=== PATIENT | female | born 1990 | race Caucasian/White ===

== ENCOUNTER 2016-08-24 13:39 | Emergency (ER) | payer SELFPAY ==
[2016-08-24 14:55] VITALS: BP 142/65
--- NOTE | 2016-08-24 15:47 | UC ---
Lower Extremity/Ankle HPI - HPI Summary HPI Summary: works as a [employer] has a couple days of worsening left foot and ankle pain---no known trauma - History of Current Complaint Chief Complaint: UCLowerExtremity Stated Complaint: LEFT FOOT PAIN Time Seen by Provider: 08/24/16 15:47 Hx Obtained From: Patient Hx Last Menstrual Period: 08/06/13 ?: No Onset/Duration: Gradual Onset, Lasting Days - 2, Still Present, Worse Since - today Severity Initially: Mild Severity Currently: Moderate Aggravating Factor(s): Standing, Ambulation Alleviating Factor(s): Rest, Elevation Able to Bear Weight: Yes - with pain - Allergies/Home Medications Allergies/Adverse Reactions: Allergies Allergy/AdvReac Type Severity Reaction Status Date / Time Aloe Allergy Hives Verified 08/07/13 21:38 Metoclopramide [From Reglan] Allergy Vomiting Verified 08/07/13 21:41 reglan Allergy Vomiting Uncoded 08/07/13 21:41 vinyl gloves Allergy Rash Uncoded 08/24/16 14:55 PMH/Surg Hx/FS Hx/Imm Hx Previously Healthy: Yes - Surgical History Surgical History: None - Family History Known Family History: Positive: None Family History: denies cardiovascular issues in family lineage - Social History Occupation: Employed Full-time - [employer]PER[employer]OR Lives: With Family Alcohol Use: Rare Substance Use Type: None Smoking Status (MU): Never Smoked Tobacco Review of Systems Constitutional: Negative Skin: Negative Eyes: Negative ENT: Negative Respiratory: Negative Cardiovascular: Palpitations Gastrointestinal: Negative Genitourinary: Negative Motor: Negative Neurovascular: Negative Musculoskeletal: Arthralgia - left foot , ankle and distal lateral lower leg Neurological: Negative Psychological: Negative All Other Systems Reviewed And Are Negative: Yes Physical Exam Triage Information Reviewed: Yes Appearance: Well-Appearing, Pain Distress - mild, Obese Vital Signs: Initial Vital Signs Temp 98.2 F 08/24/16 14:51 Pulse 73 08/24/16 14:51 Resp 14 08/24/16 14:51 BP 142/65 08/24/16 14:51 Pulse Ox 99 08/24/16 14:51 Vital Signs Reviewed: Yes Eye Exam: Normal Eyes: Positive: Conjunctiva Clear ENT Exam: Normal ENT: Positive: Normal ENT inspection, Hearing grossly normal. Negative: Nasal congestion, Nasal drainage, Trismus, Muffled/hoarse voice Neck exam: Normal Neck: Positive: Supple, Nontender Respiratory Exam: Normal Respiratory: Positive: No respiratory distress, No accessory muscle use Cardiovascular Exam: Normal Cardiovascular: Positive: RRR, Pulses Normal, Brisk Capillary Refill Musculoskeletal Exam: Normal Musculoskeletal: Positive: Strength Intact, ROM Intact, Edema @ - lateral left ankle Neurological Exam: Normal Neurological: Positive: Alert, Muscle Tone Normal Psychological Exam: Normal Skin Exam: Normal Diagnostics - Radiology No standard instances Xray Interpretation: No Acute Changes Radiology Interpretation Completed By: Radiologist Re-Evaluation - Re-Evaluation First Eval Change: Improved - Jose wrap and crutches--- Lower Extremity Course/Dx - Course Course Of Treatment: rest , jose, non weightbearing, nsaids, follow with orthopedic MD, reccomendations for insoles for shoes made - Differential Dx/Diagnosis Differential Diagnosis/HQI/PQRI: Contusion, Fracture (Closed), Sprain, Strain, Tendonitis Provider Diagnoses: Repoeativie stress injury , tendonitis left foot/ankle Discharge - Discharge Plan Condition: Stable Disposition: HOME Prescriptions: Ibuprofen TAB* [Motrin TAB* 600 MG] 600 mg PO Q6H PRN #30 tab PRN Reason: pain Patient Education Materials: Crutch Instructions (ED), Arthralgia (ED), Tendinitis (ED), RICE Therapy (ED) Forms: *Work Release Referrals: Mary Kay Bates MD [Primary Care Provider] - Raul Dupont MD [Medical Doctor] - 5 Days
--- NOTE | 2016-08-24 16:20 | RAD ---
HISTORY: Pain and swelling of left lateral ankle COMPARISONS: None VIEWS: 3, Frontal, lateral, and oblique views of the left ankle FINDINGS: BONE DENSITY: Normal. BONES: There is no displaced fracture. JOINTS: There is no arthropathy. ALIGNMENT: There is no dislocation. SOFT TISSUES: Unremarkable. OTHER FINDINGS: None. IMPRESSION: NO ACUTE OSSEOUS INJURY. IF SYMPTOMS PERSIST, RECOMMEND REPEAT IMAGING.
--- NOTE | 2016-08-24 16:20 | RAD ---
HISTORY: Left foot pain COMPARISONS: None VIEWS: 3, Frontal, lateral, and oblique views of the left foot FINDINGS: BONE DENSITY: Normal. BONES: There is no displaced fracture. JOINTS: There is no arthropathy. ALIGNMENT: There is no dislocation. SOFT TISSUES: Unremarkable. OTHER FINDINGS: None. IMPRESSION: NO ACUTE OSSEOUS INJURY. IF SYMPTOMS PERSIST, RECOMMEND REPEAT IMAGING.
--- NOTE | 2016-08-24 16:21 | RAD ---
HISTORY: Lateral pain of the left foreleg COMPARISONS: None VIEWS: 2, Frontal and lateral views of the proximal left foreleg. The distal foreleg and ankle are imaged separately. FINDINGS: BONE DENSITY: Normal. BONES: There is no displaced fracture. JOINTS: There is no arthropathy. ALIGNMENT: There is no dislocation. SOFT TISSUES: Unremarkable. OTHER FINDINGS: None. IMPRESSION: NO ACUTE OSSEOUS INJURY. IF SYMPTOMS PERSIST, RECOMMEND REPEAT IMAGING.
== END 2016-08-24 16:52 | disposition home or self-care (01) ==
LOC: UCCORT 13:39
DX: S99.922A Unspecified injury of left foot, initial encounter (principal); X50.3XXA Overexertion from repetitive movements, initial encounter; Y93.9 Activity, unspecified; Y92.9 Unspecified place or not applicable; M77.9 Enthesopathy, unspecified
CPT/HCPCS: 99203; G0463

== ENCOUNTER 2018-03-25 08:44 | Emergency (ER) | payer OTHER ==
[2018-03-25 09:08] VITALS: BP 129/7
[2018-03-25] MEDS ORDERED: Ketorolac INJ* 30 MG/ML 1 ML VIAL IM ONE (09:48)
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
--- NOTE | 2018-03-25 10:36 | RAD ---
Indication: Pelvic pain. Single view the pelvis demonstrates pelvic ring to be intact. There is no fracture or dislocation. No other bone or joint abnormality is noted. Hip joint is intact. IMPRESSION: No fracture of the pelvis or hips are noted.
--- NOTE | 2018-03-25 21:24 | UC ---
- Progress Note Progress Note: Patient Name: MUKUL VANESSA Medical Record#: [id number] Ordering Physician: Arnie Ross DO Acct.#: [id number] : 1990 Age: 28 Sex: F Location: [facility] [place] Exam Date: 03/25/18946 ADM Status: REG ER Order Information: PELVIS 1-2 VWS Accession Number: [id number] CPT: 14167 Indication: Pelvic pain. Single view the pelvis demonstrates pelvic ring to be intact. There is no fracture or dislocation. No other bone or joint abnormality is noted. Hip joint is intact. IMPRESSION: No fracture of the pelvis or hips are noted. <Electronically signed by Liberty Whittaker MD in OV> 03/25/18 1032 Dictated By: Liberty Whittaker MD Dictated Date/Time: 03/25/18 1032 Transcribed Date/Time: 03/25/18 1011 Copy to: CC:Mary Kay Btaes MD; Arnie Ross DO Imaging [facility] [address] [place] [address] ph ([phone]) ph ([phone]) ph ([phone]) This report is only to be considered final once signed by the Provider(s) as displayed in the "<Electronically Signed by >" field (s). Absence of a signature indicates the report is in a draft status and still needs to be finalized. In the event this document was created by someone other than the signing Provider, the individual initiating the document will be listed in the "Entered by:" or "Dictated by:" brock. 1 of 1 Discharge - Sign-Out/Discharge Documenting (check all that apply): Post-Discharge Follow Up All imaging exams completed and their final reports reviewed: Yes - Discharge Plan Condition: Good Disposition: HOME Patient Education Materials: Hip Pain (ED) Referrals: Janes Paige MD [Medical Doctor] - 7 Days (Ortho referral if needed ) Mary Kay Bates MD [Primary Care Provider] - 4 Days - Billing Disposition and Condition Condition: GOOD Disposition: Home
== END 2018-03-25 10:32 | disposition home or self-care (01) ==
LOC: UCCORT 08:44
DX: M25.551 Pain in right hip (principal); Z88.8 Allergy status to other drugs, medicaments and biological substances; Z91.048 Other nonmedicinal substance allergy status
CPT/HCPCS: 72170; 96372; 99211; G0463; J1885